=== PATIENT | male | born 1960 | race Caucasian/White ===

== ENCOUNTER 2017-04-27 09:27 | Day surgery (SDC) | payer BC ==
[~2017-04-27] VITALS: Ht 160 cm; Wt 65.1 kg
[~2017-04-27 09:27] MED LIST: ASPI81 PO; ATEN1TAB75 PO; CELE100 PO; IMDU120T PO; PRAV20TA67 PO
[2017-04-27] MEDS ORDERED: IOHEXOL 350 MG/ML 100 ML BTL (for Cath Lab) OTHER ONE (09:28)
[2017-04-27 09:51] VITALS: BP 153/80; PULSE 52; RESP 18; TEMP 97.6; O2SAT 98
[2017-04-27] MEDS ORDERED: NS 1000P @30 MLS/HR (KVO) IV SCH (10:00)
[2017-04-27] MEDS ORDERED: ASPI81TA23 PO (10:31)
[2017-04-27] MEDS ORDERED: DILT240C44 PO (10:31)
[2017-04-27] MEDS ORDERED: ATEN50TA PO (10:31)
[2017-04-27] MEDS ORDERED: ISOS60TA PO (10:31)
[2017-04-27] MEDS ORDERED: NITR0.4S SL (10:31)
[2017-04-27] MEDS ORDERED: ROSU1TAB6 PO (10:31)
[2017-04-27 10:35] LABS: AUTOMATED NEUTROPHIL # 4.9 TH/MM3 (1.8-7.7); BASOPHIL # 0.1 TH/MM3 (0-0.2); BASOPHIL % 1.1 % (0.0-2.0); EOSINOPHIL # 0.2 TH/MM3 (0-0.4); EOSINOPHIL % 2.7 % (0.0-4.0); HEMATOCRIT 44.2 % (39.0-51.0); HEMOGLOBIN 15.5 GM/DL (13.0-17.0); LYMPH % 22.1 % (9.0-44.0); LYMPHOCYTE # 1.6 TH/MM3 (1.0-4.8); MEAN CELL VOLUME 88.6 FL (80.0-100.0); MEAN CORPUSCULAR HEMOGLOBIN 31.1 PG (27.0-34.0); MEAN CORPUSCULAR HGB CONC 35.1 % (32.0-36.0); MEAN PLATELET VOLUME 8.1 FL (7.0-11.0); MONO % 7.7 % (0.0-8.0); MONOCYTE # 0.6 TH/MM3 (0-0.9); NEUT % 66.4 % (16.0-70.0); PLATELET COUNT 180 TH/MM3 (150-450); RED BLOOD COUNT 4.99 MIL/MM3 (4.50-5.90); RED CELL DISTRIBUTION WIDTH 13.8 % (11.6-17.2); WHITE BLOOD COUNT 7.4 TH/MM3 (4.0-11.0)
[2017-04-27 10:48] LABS: BICARBONATE 28.9 MEQ/L (21.0-32.0); CREATININE 0.79 MG/DL (0.60-1.30)
[2017-04-27 11:13] LABS: PROTHROMBIN TIME - PATIENT 10.4 SEC (9.8-11.6)
--- NOTE | 2017-04-27 11:37 | EKG ---
Date Performed: 04/27/2017 Time Performed: 10:06:34 PTAGE: 57 years EKG: Sinus bradycardia. Normal ECG except for rate PREVIOUS TRACING : 10/07/1997 10.36 Since the prior tracing, there has been no significan t change DOCTOR: Wai Rizzo Interpretating Date/Time 04/27/2017 11:36:47
[2017-04-27] MEDS ORDERED: HEPARIN-NS/PF INJ 1,000 ML ONE (12:55)
[2017-04-27] MEDS ORDERED: MIDAZOLAM HCL 2 MG/2 ML VIAL ONE (12:55)
[2017-04-27] MEDS ORDERED: ONDANSETRON HCL 4 MG/2 ML VIAL ONE (13:46)
[2017-04-27] MEDS ORDERED: VERAPAMIL HCL 5 MG/2 ML VIAL ONE (13:47)
[2017-04-27] MEDS ORDERED: NITROGLYCERIN INJ 5 ML ONE (13:48)
[2017-04-27] MEDS ORDERED: HEPARIN SODIUM - IV 10,000 UNITS/10 ML VIAL ONE (13:48)
--- NOTE | 2017-04-27 14:50 | CATHPROC ---
[facility] HIS Report Study Information Study Number Admission Scheduled Start Study Start [id number] Apr 27 2017 9:27AM 04/27/2017 Apr 27 2017 12:30PM Study Type [place] Service Left/Possible PCI Cardiac Catheterization Admit Source Facility Department Other [facility] - Budget Report Clerk Physician and Clinical Staff Initial Whit Gonzalez Pricer Bagger Camila Herzog,RN Recorder Jazmyne Manzanares,TOWN PLANNER TECH2 Scrub Tina Mcgee,RT(R) Procedures Performed Procedure Location (Site) Vessel Name Coronary Angiograms LCA Left Coronary Coronary Angiograms RCA Right Coronary LV Gram-hand inj. LV LV Ventricle Equipment Time Sporting Goods Sales Associate Description Size Mfg Part Number Used/Scraped TRANSDUCER, TRUWAVE [id number] 12:47 CALLAWAY HERRERA * Used W/STOCKCOCK *[id number] INTRODUCER SET, 13:18 [employer]. FR 5 [id number] *[id number] Used MICROPUNCTURE, STIFFENED SDN-21-2.5 12:47 [employer]hit INC. NEEDLE, PERCUTANEOUS ENTRY 21G X 2.5CM Used *[id number] [id number] *[id number] *[id number] [id number] *[id number] [id number] *[id number] WIRE, HYDROSTEER 150CM [id number] 13:42 DAIG/[employer]. CHR[employer] MEDICAL 150CM Used ANGLED GLIDE *[id number] 12:47 MEDLINE INDUSTRIES PACK, CCL CUSTOM * Used *[id number] 12:47 Sensegon SUPPORT, ARTERIAL ADULT 97081 *[id number] Used [id number] 12:47 Koibanx PACER PEN, SKIN DUAL W/ RULER * Used *[id number] BAND, RADIAL COMPRESSION TR [id number] 14:15 Winning Pitch MEDICAL 24CM Used SHORT 24 *[id number] 12:47 Trendslide WIRE, EXCHANGE 260CM 3MMJ 260CM Used *[id number] 12:47 NYCOMED OMNIPAQUE, 350 MG, 150ML 150ML [id number] Used [id number] 12:47 [employer] BLANKET,WARM AIR CCL * Used *[id number] 13:16 TERUMO MEDICAL SHEATH, FR4 TERUMO (10CM) FR 4 Used *[id number] SHEATH, FR6 TRANSRADIAL [id number] 13:42 TERUMO MEDICAL FR 6 Used SLENDER 10CM *[id number] Equipment Model, Serial, Lot Number and Expiration Data Description Model Number Serial Number Lot Number Expiration Date INTRODUCER SET, [id number] 03-11-2020 MICROPUNCTURE, STIFFENED WIRE, HYDROSTEER 150CM [id number] 11-26-2019 ANGLED GLIDE History: Current Medications Medication Dosage/Unit Route Frequency Last Date/Time Taken ASA Beta Sloan CARDIZEM Imdur NTG SL Statins (any) History: Allergies Allergy Reaction No Known Allergies History: Risk Factors Family History of Hypertension Dyslipidemia Previous LA Previous Heart Failure Premature CAD Yes Yes Yes Yes No Prior Valve Prior PCI Prior PCIDate Prior CABG Surgery No Yes 03/28/1997 No Cerebrovascular Peripheral Artery Chronic Lung On Dialysis Diabetes Disease Disease Disease No Yes Yes Yes No History: Symptoms/Diagnosis Selection Items Chest pain History: Other Current Smoker Method Packs a Day Years Used Pack Years Yes Cigarettes 1 43 43 Labs Hgb (g/dl) Hct (%) RBC (MIL/MM3) WBC (l/cumm) Platelets (thousands) 11.60-17.00 35.00-51.00 4.00-5.90 4.00-11.00 150.00-450.00 15.5 44.2 4.9 7.4 180 Glucose (mg/dl) BUN (mg/dl) Creatinine (mg/dl) BUN:Creatinine (1:x) 74.00-106.00 7.00-18.00 0.50-1.30 10.00-20.00 94 14 0.7 20 Na (meq/l) K (meq/l) Cl (meq/l) CO2 (mmol/L) Ca (mg/dl) 136.00-145.00 3.50-5.10 98.00-107.00 21.00-32.00 8.50-10.10 136 4.1 103 28.9 9 PT (sec) INR (PTT:PT) 9.80-11.60 0.90-1.10 10.4 1 CPK-MB (ng/ML) 0.50-3.60 Not Drawn Medication Medication Total Dose (Bolus/Oral) Medication Total Dosage/Unit 1% XYLOCAINE 30 mL FENTANYL 50 mcg OXYGEN 2 l/min RADIAL COCKTAIL 5 mL (Bolus) VERSED 2 mg ZOFRAN 4 mg Medications (Bolus/Oral) Medication Time Given Dosage/Unit Administered By Reason VERSED 04/27/2017 1:33:49 PM 1 mg Adamy, Camila 1 mg VERSED given in lab by Camila Herzog RN in Left Antecubital via Peripheral IV. Ordered by Whit Cortes. FENTANYL 04/27/2017 1:34:08 PM 25 mcg Adamy, Camila 25 mcg FENTANYL given in lab by Camila Herzog RN in Left Antecubital via Peripheral IV. Ordered by Whit Tinoco. 1% XYLOCAINE 04/27/2017 1:36:51 PM 20 mL Whit Tinoco 20 mL 1% XYLOCAINE given in lab by Whit Tinoco in Right Groin via Subcutaneous. VERSED 04/27/2017 1:37:17 PM 1 mg Adamy, Camila 1 mg VERSED given in lab by Camila Herzog RN in Left Antecubital via Peripheral IV. Ordered by Whit Cortes. FENTANYL 04/27/2017 1:38:23 PM 25 mcg Adamy, Camila 25 mcg FENTANYL given in lab by Camila Herzog RN in Left Antecubital via Peripheral IV. Ordered by Whit Tinoco. ZOFRAN 04/27/2017 1:46:54 PM 4 mg Mino, Camila 4 mg ZOFRAN given in lab by Camila Herzog, ELIZABETH in Left Antecubital via Peripheral IV. Ordered by Whit Cortes. 1% XYLOCAINE 04/27/2017 1:51:44 PM 10 mL Whit Tinoco 10 mL 1% XYLOCAINE given in lab by Whit Tinoco in Right Radial via Subcutaneous. Ordered by Whit Chan. Ntg 200mcg Verapamil 2.5mg Heparin RADIAL COCKTAIL 04/27/2017 1:57:22 PM 5 mL (Bolus) Whit Tinoco 2500U 5 mL (Bolus) RADIAL COCKTAIL given in lab by Whit Tinoco in Right Radial via Radial. Using [Solu tion Name]. Ordered by Whit Tinoco. Reason: Ntg 200mcg Verapamil 2.5mg Heparin 2500U. OXYGEN 04/27/2017 2:01:14 PM 2 l/min Camila Herzog 2 l/min OXYGEN given in lab by Camila Herzog, RN via Nasal. Ordered by Whit Tinoco. Medication (Drip) Medication Time Given Dosage/Unit Concentration/Unit Diluent (ml) Solution IV Solutions 04/27/2017 12:51:26 PM 0 mL (IV) 500 NaCl .9 Patient arrived on IV Solutions in Left Antecubital via Peripheral IV. Pump/Drip Flow = 20 ml/hr usin g NaCl .9. Initial Case Assessment Cardiovascular HR Rhythm NIBP Chest Pain 57 sb 161/89 0 Circulatory - Right Pulses Dorsalis Pedis Femoral Radial d 2 2 Scale (0,1,2,3,4,d) Circulatory - Left Pulses Dorsalis Pedis Femoral Radial d 2 Scale (0,1,2,3,4,d) Neurological State Oriented to time-place- Alert Moves all extremities person Respiration - General Respiration Rate SpO2 (%) (B/min) 13 98 Final Case Assessment Cardiovascular HR Rhythm NIBP Chest Pain 50 sb 118/71 0 Circulatory - Right Pulses Dorsalis Pedis Femoral Radial d 2 2 Scale (0,1,2,3,4,d) Circulatory - Left Pulses Dorsalis Pedis Femoral Radial d 2 Scale (0,1,2,3,4,d) Neurological State Oriented to time-place- Alert Moves all extremities person Respiration - General Respiration Rate SpO2 (%) (B/min) 11 95 Chronological Log Time Study Chronological Log 12:45:26 Patient arrived via Bed. 12:45:32 Patient Name, D.O.B, / Armband Verified By R.N. 12:47:37 Consent signed by the physician and the patient and verified by the Budget Report Clerk staff. 12:47:39 Pre-op and post- op instructions given; patient acknowledges understanding of instructions. 12:47:40 Verbal Stimulation=2 Physical Stimulation=2 Airway=2 Respiration=2 TOTAL=8. (0=absent, 1=li mited, 2=present) Vitals capture started with the following parameters, Patient=Adult, Interval=5 min, Initial Pr wxqhrk=676 mmHg, 12:48:36 Deflation Rate=5 mmHg, Cuff placed on Left Arm 12:49:10 HR=56 bpm, AVXO=649/89 mmhg, SpO2=98.0 %, Resp=22 B/min, Pain=0, Moody=2 12:51:05 Presedation assessment performed by Budget Report Clerk RN. 12:51:12 Allens test performed on the right radial and ulnar artery. 12:51:16 Patient has been NPO for More than 6Hrs. 12:51:20 Skin Breakdown-none 12:51:22 Derrick Prominences Protected 12:51:25 A # 20 IV was noted in the Antecubital (left). Grade = patent 12:51:26 Patient arrived on IV Solutions in Left Antecubital via Peripheral IV. Pump/Drip Flow = 20 ml/hr using NaCl .9. 12:51:27 History and physical on the chart or being dictated. Assessment: Initial Case, HR=57 BPM, Rhythm=sb, MVUM=800/89 mmhg, Chest Pain=0 Right Pulses: Manuel Ped=d, Femoral=2, Radial=2 12:51:29 Left Pulses: Manuel Ped=d, Femoral=2 Neurological: State=Alert, Ox3, PHAM Respiration: Resp=13 B/min, SpO2=98 % 12:54:15 HR=54 bpm, JCQS=928/85 mmhg, SpO2=98.0 %, Resp=15 B/min 12:59:14 HR=52 bpm, FRYA=396/83 mmhg, SpO2=98.0 %, Resp=16 B/min 13:02:06 Bilateral groins and right wrist prepped with 2% chlorhexidine, and draped after a 3 min. w aiting time. 13:02:20 Reference ECG taken 13:04:15 HR=55 bpm, UGHR=393/85 mmhg, SpO2=99.0 %, Resp=14 B/min 13:09:16 HR=53 bpm, VRYR=110/97 mmhg, SpO2=98.0 %, Resp=13 B/min 13:12:42 Pressure channel 1 zeroed. 13:13:22 MD paged 13:14:17 HR=51 bpm, PYOJ=328/78 mmhg, SpO2=97.0 %, Resp=12 B/min 13:19:59 HR=52 bpm, VPGQ=072/74 mmhg, SpO2=96.0 %, Resp=12 B/min 13:25:00 HR=51 bpm, LLTP=477/74 mmhg, SpO2=98.0 %, Resp=12 B/min 13:28:31 MD arrived. 13:29:16 HR=53 bpm, SKVB=735/79 mmhg, SpO2=96.0 %, Resp=15 B/min 13:33:49 1 mg VERSED given in lab by Camila Herzog, ELIZABETH in Left Antecubital via Peripheral IV. Orde red by Whit Tinoco. 25 mcg FENTANYL given in lab by Camila Herzog, ELIZABETH in Left Antecubital via Peripheral IV. Orde red by Alejandrina, 13:34:08 Humayun. 13:34:17 HR=56 bpm, SJPY=307/79 mmhg, SpO2=97.0 %, Resp=13 B/min Time Out. Correct patient, correct procedure, correct physician, power injector loaded with con trast with surgical team 13:34:24 present. Time Out Concurred by MD and individual staff in procedure. 13:36:46 Case Start 13:36:51 20 mL 1% XYLOCAINE given in lab by Whit Tinoco in Right Groin via Subcutaneous. 13:37:17 1 mg VERSED given in lab by Camila Herzog, ELIZABETH in Left Antecubital via Peripheral IV. Orde red by Whit Tinoco. 25 mcg FENTANYL given in lab by Camila Herzog, ELIZABETH in Left Antecubital via Peripheral IV. Orde red by Alejandrina, 13:38:23 Humayun. 13:39:16 HR=55 bpm, ZEBG=075/80 mmhg, SpO2=95 %, Resp=15 B/min 13:40:06 Access site was Right Femoral Artery. A INTRODUCER SET, MICROPUNCTURE, STIFFENED FR 5 was advanced into the Fem Art (right) using the 13:40:13 Percutaneous technique. A SHEATH, FR4 TERUMO (10CM) FR 4 was exchanged in the Fem Art (right). This was necessary in or steve to 13:40:39 accomodate a larger catheter. 13:41:54 The previous wire was exchanged for a WIRE, HYDROSTEER 150CM ANGLED GLIDE 150CM. 13:44:15 HR=63 bpm, WOAN=454/86 mmhg, SpO2=92.0 %, Resp=16 B/min 13:44:44 Patient complaining of nausea, vomited 13:46:54 4 mg ZOFRAN given in lab by Camila Herzog, RN in Left Antecubital via Peripheral IV. Orde red by Whit Tinoco. 13:47:17 An injection in the Fem Art (right) was made through the SHEATH, FR4 TERUMO (10CM) FR 4. 13:49:23 QFMJ=160/71 mmhg, SpO2=95 %, Resp=16 B/min 13:50:53 Unable to advance wire, aborting right groin access. 10 mL 1% XYLOCAINE given in lab by Whit Tinoco in Right Radial via Subcutaneous. Ordered b mercedez Tinoco, 13:51:44 Whit. 13:54:15 HR=56 bpm, AVKQ=972/79 mmhg, SpO2=96.0 %, Resp=16 B/min 13:56:09 Access site was Radial Artery. right A SHEATH, FR6 TRANSRADIAL SLENDER 10CM FR 6 was advanced into the Radial (right) using the Perc utaneous 13:56:31 technique. 5 mL (Bolus) RADIAL COCKTAIL given in lab by Whit Tinoco in Right Radial via Radial. Using [Solution Name]. 13:57:22 Ordered by Whit Tinoco. Reason: Ntg 200mcg Verapamil 2.5mg Heparin 2500U. 13:59:17 HR=55 bpm, KXKR=265/66 mmhg, SpO2=91 %, Resp=15 B/min A JL 3.5 INFINITI CATHETER FR 6 was advanced over a wire. OMNIPAQUE, 350 MG, 150ML 150ML was us ed for 14:00:11 injections. 14:01:14 2 l/min OXYGEN given in lab by Camila Herzog, RN via Nasal. Ordered by Whit Tinoco. Recorded Pressure: Ao, HR=51, Condition=Condition 1 14:03:14 (Aorta) Ao 129/61/85 14:03:40 The LCA was injected and visualized at various angles. OMNIPAQUE, 350 MG, 150ML 150ML used . 14:04:18 HR=49 bpm, YWAM=492/60 mmhg, SpO2=95 %, Resp=15 B/min After removing the current catheter a JR 5.0 INFINITI CATHETER FR 6 was advanced over a WIRE, E XCHANGE 260CM 14:07:46 3MMJ 260CM. 14:09:17 HR=51 bpm, TGAU=371/67 mmhg, SpO2=97 %, Resp=20 B/min Recorded Pressure: LV, HR=54, Condition=Condition 1 14:11:15 (Left Ventricle) LV 140/11/21 14:11:29 The LV was manually injected with 10 cc's and visualized. OMNIPAQUE, 350 MG, 150ML 150ML us ed. Recorded Pressure: LV, Ao, HR=53, Condition=Condition 1 14:12:56 (Left Ventricle) LV 137/15/22, (Aorta) Ao 122/41/75 14:13:20 The RCA was injected and visualized at various angles. OMNIPAQUE, 350 MG, 150ML 150ML used . 14:14:20 HR=48 bpm, QFNY=949/67 mmhg, SpO2=97.0 %, Resp=17 B/min 14:14:37 Catheter was removed 14:14:54 Case End 14:19:17 HR=49 bpm, ILFQ=511/69 mmhg, SpO2=98.0 %, Resp=35 B/min Radial Compression Device Used. 10 mLs of air placed in BAND, RADIAL COMPRESSION TR SHORT 24 24 CM. Affected 14:20:02 hand 99 % O2 saturation. 14:22:44 Sheath removed; pressure applied to access site. 14:24:16 HR=49 bpm, KEUK=016/73 mmhg, KpM4=055.0 %, Resp=21 B/min, Pain=0, Moody=2 14:30:10 HR=48 bpm, MBHS=918/74 mmhg, OxA9=256.0 %, Resp=20 B/min 14:35:05 HR=48 bpm, CGGI=315/69 mmhg, SpO2=99.0 %, Resp=18 B/min 14:39:17 HR=50 bpm, RQXJ=154/71 mmhg, SpO2=95.0 %, Resp=11 B/min 14:43:47 Vitals capture stopped. 14:43:52 Hemostasis obtained. 14:44:33 Sterile dressing applied to site Assessment: Final Case, HR=50 BPM, Rhythm=sb, RKXQ=635/71 mmhg, Chest Pain=0 Right Pulses: Manuel Ped=d, Femoral=2, Radial=2 14:44:34 Left Pulses: Manuel Ped=d, Femoral=2 Neurological: State=Alert, Ox3, PHAM Respiration: Resp=11 B/min, SpO2=95 % 14:44:56 No case complications noted. 14:44:58 Cine recording checked. 14:45:02 Bedside Report will be given. 14:46:26 Patient moved to bed 14:48:41 Patient transported to DOCU. End Study - Contrast Media Used In Study Contrast Total Opened (mL) Total Used (mL) Total Wasted (mL) Omnipaque 75 75 0 End Study - Maximum Contrast Load Max Contrast Load (mL) 464.9 End Study - Radiation Exposure Fluoro Time (minutes) 7.5 End Study - Sheaths Sheaths Pulled By Sheath Hold Time (min) Tina Mcgee End Study - Patient Disposition Complications Transferred To Interventional Outcome No Regular Bed No attempt made
--- NOTE | 2017-04-28 08:30 | MA ---
cc: WHIT TINOCO M.D., MELINA, PA DATE: 04/27/2017 INDICATION FOR CATHETERIZATION Continued chest pain, increasing over 6 months, heavy tobacco use, history of nuclear stress test 04/04/2017 that was low risk. CONSENT Full informed consent was obtained for the procedure. The risks of , bleeding, myocardial infarction, perforation, aspiration, foreseen and unforeseen complications were reviewed. The patient fully appeared to understand the risks. PROCEDURAL STATEMENT The patient was draped and prepped in the usual manner. The right femoral artery was entered using a micropuncture technique. The femoral artery was noted to be occluded significantly in the iliac region joining the aorta. Therefore, decided to proceed with a radial heart cath which was carried out using a radial cocktail, micropuncture technique with ultrasound. Through the slender sheath left and right coronary catheters were used to intubate left and right coronaries. The right coronary artery catheter was used to intubate the left ventricle. Multiple angiographic views were carried out. Sedation was given with fentanyl and Versed. CORONARIES The left main was large and free of significant disease. The left anterior descending artery was diffusely diseased. There was evidence of a 50% distal LAD stenosis. The circumflex artery had some mild diffuse disease. The ostium of the obtuse marginal branch had an eccentric 60% stenosis. There was a small intermediate ramus vessel that was totally occluded with 99% proximal stenosis, it was a small vessel. There was some diffuse disease of the proximal LAD of about 25%. The circumflex vessel was mildly diffusely diseased. The right coronary artery was a nondominant vessel with diffuse 60% disease. CONCLUSION Severe peripheral vascular disease, normal LV function, estimated 60%. No evidence of a significant gradient on pullback across the LV outflow tract and the aortic valve. Hemodynamics showed LV systole of 137 with a left ventricular end-diastolic pressure of 22, the aortic pressure was 122. Normal LV function, moderate disease of the coronaries with 50% LAD, 60% OM1 and 50% RCA. PLAN Continued medical management. Whit Tinoco MD, FRCP,FACC ALVINA/TLL /2:24 PM 7:55 AM
== END 2017-04-27 19:25 | disposition home or self-care (01) ==
LOC: HDOC 09:27 → HDIC 09:27 → HDOC 19:25
PROVIDERS: ATTEND Internal Medicine Cardiovascular Disease
DX: I25.10 Atherosclerotic heart disease of native coronary artery without angina pectoris (principal); I73.9 Peripheral vascular disease, unspecified; I10 Essential (primary) hypertension; I25.9 Chronic ischemic heart disease, unspecified; E78.5 Hyperlipidemia, unspecified; J44.9 Chronic obstructive pulmonary disease, unspecified; Z72.0 Tobacco use
CPT/HCPCS: 80048; 85025; 85610; 85730; 93005; 93458; 99152; 99153; C1769; C1893; J1644; J2250; J2405; J3010; Q9967